=== PATIENT | female | born 1935 | race Caucasian/White ===

== ENCOUNTER 2019-05-06 07:51 | Observation (INO) ==
[2019-05-06 08:08] LABS: Basophils # 0.1 K/mm3 (0-0.2); Basophils % 0.8 % (0.1-2.0); Eosinophils # 0.3 K/mm3 (0.0-0.4); Hematocrit 43.7 % (37.0-47.0); Hemoglobin 13.8 g/dL (12.2-16.2); Lymphocytes # 1.5 K/mm3 (0.7-4.5); Lymphocytes % 17.3 % (10-50); Mean Corpuscular HGB Conc 31.7 g/dL (31.8-35.4); Mean Platelet Volume 8.1 fl (7.4-10.4); Monocytes # 0.7 K/mm3 (0.1-1.0); Monocytes % 7.8 % (1.7-9.3); Neutrophils # 6.3 K/mm3 (1.8-7.8); Neutrophils % 71.2 % (37.0-80.0); Platelet Count 239 K/mm3 (142-424); White Blood Count 8.8 K/mm3 (4.8-10.8)
--- NOTE | 2019-05-06 08:14 | Emergency Department Note ---
ED Disposition Clinical Impression: Chest pain, Hyponatremia, Hyperlipidemia, Hypothyroidism, Osteoarthritis, Raynauds syndrome Disposition: Admitted as Observation Condition on Discharge: Serious - Critical Care Critical Care Time: No Attestation: On 05/06/19, the high probability of a clinically significant, sudden or life th reatening deterioration of the following system(s) required my full and direct attention, intervention and personal management. The time I documented below is in addition to time spent performing reported procedures but includes the following listed in this critical care notation. Medical Decision Making - Medical Records Medical records reviewed: Yes: I reviewed the patient's medical records. - Jose M Inquiry Pt receiving controlled substance: No Vital Signs: 05/06/19 07:51 05/06/19 08:26 05/06/19 08:57 Temperature Source Oral Pulse Rate [Right] 71 73 70 Respiratory Rate 18 Blood Pressure [Right Arm] 132/73 142/72 H 128/67 Blood Pressure Mean [Right Arm] 92 95 87 Blood Pressure Source [Right Arm] Automatic Cuff Automatic Cuff Automatic Cuff Blood Pressure Position [Right Arm] Sitting Sitting Sitting 02 Sat by Pulse Oximetry 97 97 100 Oxygen Delivery Method Room Air Room Air - Lab Data Lab results reviewed: Yes: I reviewed the patient's lab results. Lab Results 05/06/19 07:50: WBC 8.8, RBC 4.20, Hgb 13.8, Hct 43.7, MCV 104.0 H, MCH 32.9 H, MCHC 31.7 L, RDW 13.0, Plt Count 239, MPV 8.1, Neut % (Auto) 71.2, Lymph % (Auto) 17.3, [place] % (Auto) 7.8, Eos % (Auto) 3.0, Baso % (Auto) 0.8, Neut # (Auto) 6.3, Lymph # (Auto) 1.5, [place] # (Auto) 0.7, Eos # (Auto) 0.3, Baso # (Auto) 0.1 05/06/19 07:50: Sodium 132 L, Potassium 4.0, Chloride 99, Carbon Dioxide 29, Anion Gap 8.0, BUN 11, Creatinine 0.62, Estimated Creat Clear 38, Estimated GFR 91, Est GFR ( Amer) 110, Glucose 90, Calcium 8.6, Total Bilirubin 0.8, Direct Bilirubin 0.2, Indirect Bilirubin 0.6, AST 17, ALT 14, Alkaline Phosphatase 97, Troponin I < 0.02, Total Protein 7.3, Albumin 3.4 Result diagrams: 05/06/19 07:50 05/06/19 07:50 - ECG Data Tracing #1 I reviewed this ECG and interpreted as documented below: Electronically paced rhythm at rate of 71. ECG initial impression date: 05/06/19 ECG initial impression time: 07:50 Normal Sinus Rhythm: No (Electronic pacemaker) Chest Pain HPI - General Chief Complaint: Chest Pain Stated Complaint: chest pain Time Seen by Provider: 05/06/19 07:55 Mode of Arrival: EMS Source of Information: Patient Limitations: No Limitations Description of Symptoms (Recalled from ER Triage Doc. by RN): EMS reports patient complains of pain acorss her chest and between her shoulder baldes. Patient took 3 of Nitro, first one was taken at 0630 when the pain started. EMS reports pain had subsided when they arrived on seen. EMS gave her 3 of 24 aspirin in route. - History of Present Illness MD complaint: chest pain indicative of cardiac Duration: now resolved (Resolved after 3 nitros) Activity at onset: during rest Pain location: substernal Severity: severe Quality: aching Pain radiation: none Relieving factors: nothing Exacerbating factors: nothing Associated symptoms: other (Lightheadedness and weakness) Treatments prior to or on arrival for Cardiac Chest Pain: aspirin, nitroglycerin - Related Data Home Medications Medication Instructions Recorded Confirmed Levothyroxine Sodium 200 mcg PO DAILY 07/25/17 05/06/19 [Levothyroxine 200mcg (0.2mg) Tab] Rosuvastatin Calcium 5 mg PO DAILY 11/19/17 05/06/19 apixaban 5 mg tablet 5 mg PO BID 05/14/18 05/06/19 cyanocobalamin (vitamin B-12) 1,000 mcg PO DAILY 06/24/18 05/06/19 1,000 mcg capsule calcium carbonate 300 mg (750 mg) 300 mg PO DAILY tab 08/05/18 05/06/19 chewable tablet Spironolactone [Spironolactone 1 mg PO BID 05/06/19 05/06/19 25mg Tablet] Allergies Allergy/AdvReac Type Severity Reaction Status Date / Time sulfamethoxazole Allergy Severe S-SWELLS-OR Verified 05/06/19 08:01 [From BACTRIM] AL/THROAT trimethoprim [From BACTRIM] Allergy Severe S-SWELLS-OR Verified 05/06/19 08:01 AL/THROAT nitrofurantoin Allergy Unknown Verified 05/06/19 08:01 [NITROFURANTOIN] [facility] History - Hepatitis A Screen Drug use history?: No High risk sexual behaviors?: No History of sexually transmitted infection?: No Currently employed?: No Childcare worker?: No Do you have indoor plumbing?: Yes Do you have electricity?: Yes Attestation statement:: This patient has been screened for Hepatitis A risk factors. I have reviewed the patient's past medical history: Yes Medical History: Reports:: Atrial Fibrillation, Hyperlipidemia, Internal Pacemaker Denies:: Diabetes Mellitus Type 1, Diabetes Mellitus Type 2, Lung Disease, S eizures Other Medical History: Reports: Arthritis, Hypothyroidism Other Surgeries: Yes: Cholecystectomy, Colonoscopy, EGD, Pacemaker, Thyroidectomy, Tubal Ligation Amputation: No Fractures: Yes (Left Wrist 20 years ) - Social History Smoking Status: Never smoker Alcohol Intake: never Alcohol Intake Frequency:: other Substance Use Type: denies use Occupational Status: retired Housing: house Family Hx:: Heart Attack ROS Obtained: Yes All systems reviewed & no additional complaints - Constitutional Constitutional: Reports malaise, Reports weakness, Reports other (Lightheadedness) - Eyes Eyes: Reports system reviewed and no additional complaints, except as docu - ENT Ears, Nose, Mouth, and Throat: Reports system reviewed and no additional complaints, except as docu - Cardiovascular Cardiovascular: Reports chest pain, Reports chest pain at rest, Reports lightheadedness - Respiratory Respiratory: Yes system reviewed and no additional complaints, except as docu - Gastrointestinal Gastrointestingal: Reports: system reviewed and no additional complaints, except as docu - Genitourinary Female Genitourinary: Reports system reviewed and no additional complaints, except as docu - Musculoskeletal Musculoskeletal: Reports system reviewed and no additional complaints, except as docu - Integumentary/Breasts Skin/Breast: Reports system reviewed and no additional complaints, except as docu - Neurologic Neurologic: Reports system reviewed and no additional complaints, except as docu - Endocrine Endocrine: Reports system reviewed and no additional complaints, except as docu - Hematologic/Lymphatic Henatologic/Lymphatic: Reports system reviewed and no additional complaints, except as docu - Allergic/Immunologic Allergic/Immunologic: Reports system reviewed and no additional complaints, except as docu Physical Exam - General General appearance: alert, in no apparent distress - Head Head exam: atraumatic, normocephalic, normal inspection - Eye Eye exam: Present: normal appearance, PERRL, EOMI - ENT ENT exam: Present: normal exam - Neck Neck exam: Present: normal inspection, full ROM, trachea midline. Absent: meningismus, lymphadenopathy - Chest Chest inspection: Present: normal inspection, symmetric chest wall rise. Absent: tenderness - Respiratory Respiratory exam: Present: normal lung sounds bilaterally. Absent: respiratory distress - Cardiovascular Cardiovascular exam: Present: regular rate, normal rhythm, Pacemaker w/paced rhythm. Absent: JVD - Abdominal Exam Abdominal exam: Present: soft, normal bowel sounds. Absent: distention, tenderness, guarding - Extremities Exam Extremities exam: Present: normal inspection, full ROM, normal capillary refill. Absent: calf tenderness - Back Exam Back exam: Present: normal inspection. Absent: tenderness - Neurological Exam Neurological exam: Present: alert, oriented X3, CN II-XII intact, normal gait. Absent: motor sensory deficit - Psychiatric Psychiatric exam: Present: normal affect, normal mood - Skin Skin exam: Present: warm, dry, intact, normal color - Lymphatic Lymphatic Findings: no adenopathy
[2019-05-06 08:20] LABS: Alanine Aminotransferase 14 U/L (12-78); Albumin Level 3.4 gm/dL (3.4-5.0); Alkaline Phosphatase 97 U/L (46-116); Aspartate Amino Transferase 17 U/L (15-37); Bilirubin,Direct 0.2 mg/dL (0.0-0.2); Bilirubin,Indirect 0.6 mg/dL (0.0-0.9); Bilirubin,Total 0.8 mg/dL (0.2-1.0); Blood Urea Nitrogen 11 mg/dL (7-18); Calcium 8.6 mg/dL (8.5-10.1); Carbon Dioxide 29 mmol/L (21.0-32.0); Chloride 99 mmol/L (98-107); Glucose 90 mg/dL (74-106); Sodium 132 mmol/L (136-145); Total Protein,Serum 7.3 gm/dL (6.4-8.2)
--- NOTE | 2019-05-06 09:36 | History & Physical Report ---
*Admission Date: 05/06/19 *Chief complaint: chest pain *History of present illness: Ms Cohen is an 84-year-old female with a history of atrial fibrillation, hyperlipidemia, hypothyroidism, and previous abnormal stress test who presented to [facility] emergency room after experiencing midsternal chest discomfort after arising this morning. She states the pain did not go away and eventually she felt through to her back. She did take 2 nitros after which she felt the pain eventually subsided. She denies associated shortness of breath, nausea, vomiting, and palpitations. She states she has had this chest pain in this past but not this severe. What really frightened her was the dizziness that she experienced after taking the nitroglycerin. In route to the emergency room via ambulance she was given aspirin. At the time of this exam she was pain-free and denies shortness of breath. Initial troponin was normal. She has been seen by cardiology, and will be admitted, started on a beta-padmini, and observed with monitoring of blood pressure and heart rate. Patient was also seen by Dr. Fan in the emergency room. [facility] History Medical History: Reports:: Atrial Fibrillation, Gastroesophageal Reflux Disease(GERD), Hyperlipidemia, Internal Pacemaker Denies:: Diabetes Mellitus Type 1, Diabetes Mellitus Type 2, Lung Disease, Seizures *Have you ever received a pneumonia vaccine?: No *Have you received a flu vaccine this season?: Yes Other Medical History: Reports: Arthritis, Hypothyroidism Comment:: Parkinson's disease Laterality Cases: Right: Breast Biopsy, Partial Knee Replacement, Bilateral: Carpal Tunnel Release, Cataract, Tonsillectomy Other Surgeries: Yes: Cholecystectomy, Colonoscopy, EGD, Pacemaker, Thyroidectomy, Tubal Ligation Amputation: No Fractures: Yes (Left Wrist 20 years ) - *Social History Smoking Status: Never smoker Alcohol Intake: never Alcohol Intake Frequency:: other Substance Use Type: denies use *Occupational Status:: retired Housing: house Household Members: none *Travel in the last 8 weeks: None Family Hx:: Cancer, Heart Attack Review of Systems - Constitutional Denies headache(s) - Eyes Denies change in vision - ENT Reports dry mouth, Reports nasal discharge, Denies ear pain, Denies sore throat Comments: Think she probably has allergies - *Cardiovascular Reports chest pain, Reports irregular heart rhythm, Reports lightheadedness, Denies shortness of breath, Denies leg swelling (Drugs) - *Respiratory Denies chest congestion, Denies cough, Denies shortness of breath - *Gastrointestinal Reports heartburn, Denies abdominal pain, Denies change in bowel habits, Denies vomiting blood, Denies bright, red blood in stools, Denies loose stools, Denies black, tarry stools, Denies nausea, Denies vomiting - *Genitourinary Reports genital itching, Denies difficulty urinating, Denies painful urination - *Musculoskeletal Denies joint pain - *Neurologic Reports dizziness, Reports weakness, Denies abnormal walking, Denies abnormal speech, Denies seizure-like activity Meds Home Medications Medication Instructions Recorded Confirmed Type Levothyroxine Sodium 200 mcg PO DAILY 07/25/17 05/06/19 History [Levothyroxine 200mcg (0.2mg) Tab] Rosuvastatin Calcium 5 mg PO DAILY 11/19/17 05/06/19 History apixaban 5 mg tablet 5 mg PO BID 05/14/18 05/06/19 History cyanocobalamin (vitamin B-12) 1,000 mcg PO DAILY 06/24/18 05/06/19 History 1,000 mcg capsule calcium carbonate 300 mg (750 mg) 300 mg PO DAILY tab 08/05/18 05/06/19 History chewable tablet Spironolactone [Spironolactone 1 mg PO BID 05/06/19 05/06/19 History 25mg Tablet] Allergies Allergy/AdvReac Type Severity Reaction Status Date / Time sulfamethoxazole Allergy Severe S-SWELLS-OR Verified 05/06/19 08:01 [From BACTRIM] AL/THROAT trimethoprim [From BACTRIM] Allergy Severe S-SWELLS-OR Verified 05/06/19 08:01 AL/THROAT nitrofurantoin Allergy Unknown Verified 05/06/19 08:01 [NITROFURANTOIN] Exam Vital signs and Labs for Last 24 Hours: Pulse Resp BP Pulse Ox 72 18 133/69 100 05/06/19 09:21 05/06/19 07:51 05/06/19 09:21 05/06/19 09:21 Laboratory Results - last 24 hr 05/06/19 07:50: WBC 8.8, RBC 4.20, Hgb 13.8, Hct 43.7, MCV 104.0 H, MCH 32.9 H, MCHC 31.7 L, RDW 13.0, Plt Count 239, MPV 8.1, Neut % (Auto) 71.2, Lymph % (Auto) 17.3, [place] % (Auto) 7.8, Eos % (Auto) 3.0, Baso % (Auto) 0.8, Neut # (Auto) 6.3, Lymph # (Auto) 1.5, [place] # (Auto) 0.7, Eos # (Auto) 0.3, Baso # (Auto) 0.1 05/06/19 07:50: Sodium 132 L, Potassium 4.0, Chloride 99, Carbon Dioxide 29, Anion Gap 8.0, BUN 11, Creatinine 0.62, Estimated Creat Clear 38, Estimated GFR 91, Est GFR ( Amer) 110, Glucose 90, Calcium 8.6, Total Bilirubin 0.8, Direct Bilirubin 0.2, Indirect Bilirubin 0.6, AST 17, ALT 14, Alkaline Phosphatase 97, Troponin I < 0.02, Total Protein 7.3, Albumin 3.4 I & O for Last 24 hours: Intake & Output 05/03/19 05/04/19 05/05/19 05/06/19 11:59 11:59 11:59 11:59 Weight 132 lb Radiology Reports for the Last 24 Hours: 05/06/2019 chest x-ray IMPRESSION: Pacemaker present with borderline cardiomegaly. No change no acute - Constitutional no acute distress Comments: Appears comfortable - *Routine HEENT Exam Head: Present: normocephalic, atraumatic Eye: Present: PERRL. Absent: scleral injection, conjunctivae pink ENT: Present: mucous membranes moist, oropharynx clear, nares patent - *Routine Neck Exam Present: supple, full ROM. Absent: carotid bruit, lymphadenopathy, thyromegaly - *Routine Respiratory Exam Present: CTA bilaterally (Anteriorly and posteriorly ) - *Routine Cardiovascular Exam Present: RRR - *Routine Abdominal Exam Present: soft, normoactive bowel sounds. Absent: tenderness, distended - *Routine Extremities Exam Present: full ROM. Absent: edema, calf tenderness - *Routine Neurological Exam Present: alert, oriented X3 Assessment and Plan (1) Atrial fibrillation Current visit: Yes Status: Acute Category: Medical Code(s): I48.91 - Unspecified atrial fibrillation (2) Chest pain Current visit: Yes Status: Acute Qualifiers: Category: Medical Code(s): R07.9 - Chest pain, unspecified (3) Hyperlipidemia Current visit: Yes Status: Acute Category: Medical Code(s): E78.5 - Hyperlipidemia, unspecified (4) Hypothyroidism Current visit: Yes Status: Acute Category: Medical Code(s): E03.9 - Hypothyroidism, unspecified (5) Osteoarthritis Current visit: Yes Status: Acute Category: Medical Code(s): M19.90 - Unspecified osteoarthritis, unspecified site (6) Cardiac pacemaker in situ Current visit: No Status: Chronic Category: Medical Code(s): Z95.0 - Presence of cardiac pacemaker - Assessment and plan all Dx Assessment and Plan for all problems:: Will follow cardiology recommendations with beta-padmini and observation.
--- NOTE | 2019-05-06 09:39 | Consult Report ---
History of Present Illness Consult date: 05/06/19 Requesting physician: Jeana Fan Consult reason: chest pain Chief complaint: chest pain Additional Medical History:: 1. Abnormal lexiscan myoview, 07/2017, with EF 73% and small area of inferior ischemia noted. Similar to 2016 study. 2. Hypothyroidism, on replacement therapy A. History of ablation with iodine therapy 3. Hyperlipidemia, on statin therapy 4. Chronic atrial fibrillation, on Eliquis therapy 5. History of single lead [employer] permanent pacemaker placed in 2013, Dr. Umanzor 6. Gastroesophageal reflux disease 7. Moderate aortic and mitral regurgitation, echocardiogram, 07/2018 8. Orthostatic dizziness A. Carotid u/s, 08/2018, less than 20% ICA stenosis bilaterally. Unchanged from 2018. History of present illness: 84-year-old white female was seen in the ER for chest pain this morning. She describes it as starting at rest on the left side of her chest and radiating across the chest with such intensity that she took nitroglycerin sublingual tablets x3 over the course of 15 minutes with subsequent resolution of the symptoms. She denies any shortness of breath, nausea or diaphoresis. Afterwards, she did note some back discomfort which has resolved since coming to the ER. She was given aspirin in route by EMS. Her EKG is paced with LBBB. Initial troponin is normal. Patient has a history of an abnormal stress test last year but due to lack of symptoms has been managed conservatively. Patient was seen in Dr. Fan's office yesterday for routine visit. She does relate intermittent dizziness at times with positional change. [facility] History Medical History: Reports:: Atrial Fibrillation, Gastroesophageal Reflux Disease(GERD), Hyperlipidemia, Internal Pacemaker Denies:: Diabetes Mellitus Type 1, Diabetes Mellitus Type 2, Lung Disease, Seizures *Have you ever received a pneumonia vaccine?: No *Have you received a flu vaccine this season?: Yes Other Medical History: Reports: Arthritis, Hypothyroidism Laterality Cases: Right: Breast Biopsy Other Surgeries: Yes: Cholecystectomy, Colonoscopy, EGD, Pacemaker, Thyroidectomy, Tubal Ligation Amputation: No Fractures: Yes (Left Wrist 20 years ) - *Social History Smoking Status: Never smoker Alcohol Intake: never Alcohol Intake Frequency:: other Substance Use Type: denies use *Occupational Status:: retired Housing: house *Travel in the last 8 weeks: None Family Hx:: Heart Attack Meds Home Medications Medication Instructions Recorded Confirmed Type Levothyroxine Sodium 200 mcg PO DAILY 07/25/17 05/06/19 History [Levothyroxine 200mcg (0.2mg) Tab] Rosuvastatin Calcium 5 mg PO DAILY 11/19/17 05/06/19 History apixaban 5 mg tablet 5 mg PO BID 05/14/18 05/06/19 History cyanocobalamin (vitamin B-12) 1,000 mcg PO DAILY 06/24/18 05/06/19 History 1,000 mcg capsule calcium carbonate 300 mg (750 mg) 300 mg PO DAILY tab 08/05/18 05/06/19 History chewable tablet Spironolactone [Spironolactone 1 mg PO BID 05/06/19 05/06/19 History 25mg Tablet] Allergies Allergy/AdvReac Type Severity Reaction Status Date / Time sulfamethoxazole Allergy Severe S-SWELLS-OR Verified 05/06/19 08:01 [From BACTRIM] AL/THROAT trimethoprim [From BACTRIM] Allergy Severe S-SWELLS-OR Verified 05/06/19 08:01 AL/THROAT nitrofurantoin Allergy Unknown Verified 05/06/19 08:01 [NITROFURANTOIN] Review of Systems - Review of Systems Review of systems:: pertinent systems reviewed and negative unless documented below - Constitutional Denies weight gain, Denies weight loss - *Cardiovascular Reports chest pain, Denies shortness of breath with activity - *Respiratory Denies chest congestion, Denies cough, Denies shortness of breath with activity - *Gastrointestinal Denies loose stools, Denies vomiting - *Genitourinary Denies blood in urine - *Musculoskeletal Denies joint pain, Denies back pain - *Neurologic Reports dizziness, Reports weakness, Denies fainting Exam Vital signs and Labs for Last 24 Hours: Pulse Resp BP Pulse Ox 72 18 133/69 100 05/06/19 09:21 05/06/19 07:51 05/06/19 09:21 05/06/19 09:21 Laboratory Results - last 24 hr 05/06/19 07:50: WBC 8.8, RBC 4.20, Hgb 13.8, Hct 43.7, MCV 104.0 H, MCH 32.9 H, MCHC 31.7 L, RDW 13.0, Plt Count 239, MPV 8.1, Neut % (Auto) 71.2, Lymph % (Auto) 17.3, [place] % (Auto) 7.8, Eos % (Auto) 3.0, Baso % (Auto) 0.8, Neut # (Auto) 6.3, Lymph # (Auto) 1.5, [place] # (Auto) 0.7, Eos # (Auto) 0.3, Baso # (Auto) 0.1 05/06/19 07:50: Sodium 132 L, Potassium 4.0, Chloride 99, Carbon Dioxide 29, Anion Gap 8.0, BUN 11, Creatinine 0.62, Estimated Creat Clear 38, Estimated GFR 91, Est GFR ( Amer) 110, Glucose 90, Calcium 8.6, Total Bilirubin 0.8, Direct Bilirubin 0.2, Indirect Bilirubin 0.6, AST 17, ALT 14, Alkaline Phosphatase 97, Troponin I < 0.02, Total Protein 7.3, Albumin 3.4 I & O for Last 24 hours: Intake & Output 05/03/19 05/04/19 05/05/19 05/06/19 11:59 11:59 11:59 11:59 Weight 132 lb - *Routine HEENT Exam Head: Present: normocephalic Eye: Present: EOMI, PERRL ENT: Present: mucous membranes moist - *Routine Neck Exam Present: supple. Absent: JVD, carotid bruit - *Routine Respiratory Exam Present: CTA bilaterally. Absent: accessory muscle use, rales, rhonchi, wheezes - *Routine Cardiovascular Exam Present: RRR, murmur. Absent: gallop, rubs - *Routine Abdominal Exam Present: soft. Absent: tenderness, distended, guarding - *Routine Extremities Exam Absent: edema, calf tenderness - *Routine Neurological Exam Present: alert, oriented X3, moving all extremities Assessment and Plan (1) Chest pain Current visit: Yes Status: Acute Qualifiers: Category: Medical Code(s): R07.9 - Chest pain, unspecified (2) Atrial fibrillation Current visit: Yes Status: Acute Category: Medical Code(s): I48.91 - Unspecified atrial fibrillation (3) Cardiac pacemaker in situ Current visit: No Status: Chronic Category: Medical Code(s): Z95.0 - Presence of cardiac pacemaker (4) Abnormal stress test Current visit: Yes Status: Acute Category: Medical Code(s): R94.39 - Abnormal result of other cardiovascular function study (5) Dizziness Current visit: No Status: Acute Category: Medical Code(s): R42 - Dizziness and giddiness - Assessment and plan all Dx Assessment and Plan for all problems:: 1. Chest pain that resolved after 3 sublingual nitroglycerin over the course of 15 minutes. Consistent with unstable angina. Patient is not on any antianginal medication at this time. She does have a history of abnormal stress test with small area of inferior ischemia in 2018. Discussion regarding treatment approaches made with the patient including medication and/or left heart catheterization for further evaluation. Patient would prefer to try medical therapy first. Due to her history of dizziness will start with low-dose beta-padmini therapy in the form of metoprolol 12.5 mg twice daily. We will monitor her heart rate and blood pressure overnight. Obtain serial cardiac enzymes x3. 2. History of moderate aortic and mitral regurgitation on echocardiogram earlier this year. Will obtain a repeat echocardiogram to assess if this has progressed. 3. Chronic A. fib with CVR, on anticoagulation.
--- NOTE | 2019-05-06 10:35 | Pharmacy Consult Notes ---
[facility] Pharmacy VTE Monitoring - Patient Demographics Admission date: 05/06/19 Report Date: 05/06/19 Time: 10:34 Allergies/Adverse Reactions: Patient Allergies sulfamethoxazole [From BACTRIM] Allergy (Severe, Verified 05/06/19 08:01) [id number]/THROAT trimethoprim [From BACTRIM] Allergy (Severe, Verified 05/06/19 08:01) [id number]/THROAT nitrofurantoin [NITROFURANTOIN] Allergy (Unknown, Verified 05/06/19 08:01) Height: 1.65 m Weight: 59.874 kg Patient Problems: Current Active Problems Chest pain (Acute) Hyponatremia (Acute) Hyperlipidemia (Acute) Hypothyroidism (Acute) Osteoarthritis (Acute) Raynauds syndrome (Acute) Atrial fibrillation (Acute) Abnormal stress test (Acute) - VTE Risk Labs: VTE Related Lab Results Hgb 13.8 g/dL (12.2-16.2) 05/06/19 07:50 Hct 43.7 % (37.0-47.0) 05/06/19 07:50 Plt Count 239 K/mm3 (142-424) 05/06/19 07:50 BUN 11 mg/dL (7-18) 05/06/19 07:50 Creatinine 0.62 mg/dL (0.55-1.02) 05/06/19 07:50 Estimated Creat Clear 38 mL/min (50-200) 05/06/19 07:50 Was VTE Risk Assessment Performed: No VTE Score: 1 VTE Risk Level: Very Low Risk - Prophylaxis VTE Prophylaxis Ordered?: Yes Types of VTE Prophylaxis: Pharmacological Pharmacologic Type: Other (ELIQUIS) - VTE Diagnosis Confirmed Treatment or plan recommended: Continue Current Treatment
--- NOTE | 2019-05-06 21:37 | Cardiology Report ---
APPROVED REPORT EXAM: Comprehensive 2D, Doppler, and color-flow Echocardiogram Sap Abap Programmer: Ara Son RVT Ht: 5 ft 5 in Wt: 132lbs BSA: 1.66 BP: 133/69 mmHg Indications: Chest Pain, Atrial Fibrillation, Hyperlipidemia, Abn stress test, Pacer, GERD, Mod MR, Mod AR 2D Dimensions LVOT 1.25 cm (M/F) 1.5-2.5 M-Mode Dimensions RVDd 2.03 cm (0.9-2.6)LA Diam 4.00 cm (1.9-4.0) RA Diam 4.80 cmLVDd 4.20 cm (3.5-5.7) Ao Diam 1.60 cm (2.0-3.7)LVDs 2.10 cm (3.5-5.7) AV Cusp 1.40 cm (1.5-2.6)IVSd 0.80 cm (0.6-1.1) PWd 0.83 cm (0.6-1.1)EF (Teich) 81.70% FS 50.00% EDV (Teich) 78.60 mL ESV (Teich) 14.40 mL LV Diastology E/A Ratio 3.91 Mitral Valve MV A Velocity 18.00 (40-130 cm/s) Left Ventricle Left atrium is moderately enlarged, left ventricle is normal size, mild concentric left ventricular hypertrophy, visually estimated ejection fraction 50%, there is abnormal septal motion, diastolic parameters are inconclusive. Right Ventricle Right atrium is moderately enlarged, right ventricle is moderately dilated with normal contractility, there is a pacemaker seen in the right atrium and right ventricle. Aortic Valve Aortic valve is minimally thickened and calcified leaflet continue to display good mobility, there is no aortic stenosis, there is mild aortic insufficiency. Mitral Valve Mitral valve leaflets are minimally thickened, there is no mitral stenosis, there is mild mitral regurgitation. Tricuspid Valve Tricuspid valve is minimally thickened, there is mild tricuspid regurgitation, calculated right ventricular systolic pressure 38 mmHg, inferior vena cava is dilated without significant inspiratory collapse. Conclusion 1. Biatrial enlargement, normal left ventricular size, visually estimated ejection fraction 50% with abnormal septal motion, diastolic parameters are inconclusive. 2. Moderately enlarged right ventricle with normal contractility. His pacemaker leads in right ventricle. 3. Mild aortic, mild mitral and tricuspid regurgitation, calculated right ventricular systolic pressure is 38 mmHg. 4. Inferior vena cava is dilated without significant inspiratory collapse. Electronically signed by : Lyle Daniel, 05/06/2019 21:37:01
[2019-05-07 06:24] LABS: Basophils # 0.1 K/mm3 (0-0.2); Basophils % 0.7 % (0.1-2.0); Eosinophils # 0.3 K/mm3 (0.0-0.4); Eosinophils % 3.9 % (0.1-12.0); Hematocrit 40.8 % (37.0-47.0); Hemoglobin 12.9 g/dL (12.2-16.2); Lymphocytes % 13.3 % (10-50); Mean Corpuscular HGB Conc 31.6 g/dL (31.8-35.4); Mean Corpuscular Volume 102.6 fl (81-99); Mean Platelet Volume 8.4 fl (7.4-10.4); Monocytes # 0.7 K/mm3 (0.1-1.0); Monocytes % 9.2 % (1.7-9.3); Neutrophils # 5.6 K/mm3 (1.8-7.8); Neutrophils % 72.8 % (37.0-80.0); Platelet Count 220 K/mm3 (142-424); Red Blood Count 3.98 M/mm3 (4.20-5.40); Red Cell Distribution Width 12.8 % (11.5-17.5); White Blood Count 7.7 K/mm3 (4.8-10.8)
[2019-05-07 07:01] LABS: INR 1.09 (0.9-1.1); Prothrombin Time 11.3 seconds (9.4-11.8)
[2019-05-07 07:03] LABS: Albumin/Globulin Ratio 0.9 (1.1-1.8); Anion Gap 11.8 mEq/L (5-15); Bilirubin,Total 0.7 mg/dL (0.2-1.0); Calcium 8.5 mg/dL (8.5-10.1); Chol/HDL Ratio 2.1 (1-3.5); Globulin 3.5 gm/dl (1.3-3.2); Phosphorous 3.2 mg/dL (2.4-4.9); Total Protein,Serum 6.5 gm/dL (6.4-8.2)
--- NOTE | 2019-05-07 07:19 | Electrocardiograph Report ---
APPROVED REPORT Exam: Resting ECG HR:71 bpm ECG Measurements Heart Rate 71 AXES QRSd 160 QRS -77 QT 444 T90 QTc 482 <Conclusion> Electronic ventricular pacemaker Electronically signed by : Amador An, 05/07/2019 07:18:24
--- NOTE | 2019-05-07 08:04 | Progress Note ---
Internal Medicine - PN: Subj *Date: 05/07/19 *Time: 08:01 Interval history: Patient states she is still feeling about the same today. She has had no further chest pain. She denies any shortness of breath. She states she slept well last night and try to eat some breakfast this morning. Exam Vital signs and Labs for Last 24 Hours: Temp Pulse Resp BP Pulse Ox 97.7 F 68 16 145/65 H 97 05/07/19 04:00 05/07/19 04:00 05/07/19 04:00 05/07/19 04:00 05/07/19 04:00 Laboratory Results - last 24 hr 05/06/19 07:50: WBC 8.8, RBC 4.20, Hgb 13.8, Hct 43.7, MCV 104.0 H, MCH 32.9 H, MCHC 31.7 L, RDW 13.0, Plt Count 239, MPV 8.1, Neut % (Auto) 71.2, Lymph % (Auto) 17.3, [place] % (Auto) 7.8, Eos % (Auto) 3.0, Baso % (Auto) 0.8, Neut # ( Auto) 6.3, Lymph # (Auto) 1.5, [place] # (Auto) 0.7, Eos # (Auto) 0.3, Baso # (Auto) 0.1 05/06/19 07:50: Sodium 132 L, Potassium 4.0, Chloride 99, Carbon Dioxide 29, Anion Gap 8.0, BUN 11, Creatinine 0.62, Estimated Creat Clear 38, Estimated GFR 91, Est GFR ( Amer) 110, Glucose 90, Calcium 8.6, Total Bilirubin 0.8, Direct Bilirubin 0.2, Indirect Bilirubin 0.6, AST 17, ALT 14, Alkaline Phosphatase 97, Troponin I < 0.02, Total Protein 7.3, Albumin 3.4 05/06/19 12:32: Troponin I < 0.02 05/06/19 12:34: TSH 0.84 05/06/19 18:35: Troponin I < 0.02 05/07/19 05:50: WBC 7.7, RBC 3.98 L, Hgb 12.9, Hct 40.8, MCV 102.6 H, MCH 32.4 H , MCHC 31.6 L, RDW 12.8, Plt Count 220, MPV 8.4, Neut % (Auto) 72.8, Lymph % (Auto) 13.3, [place] % (Auto) 9.2, Eos % (Auto) 3.9, Baso % (Auto) 0.7, Neut # (Auto) 5.6, Lymph # (Auto) 1.0, [place] # (Auto) 0.7, Eos # (Auto) 0.3, Baso # (Auto) 0.1 05/07/19 05:50: PT 11.3, INR 1.09 05/07/19 05:50: Sodium 135 L, Potassium 3.8, Chloride 100, Carbon Dioxide 27, Anion Gap 11.8, BUN 11, Creatinine 0.57, Estimated Creat Clear 37, Estimated GFR 101, Est GFR ( Amer) 122, Glucose 89, Calcium 8.5, Phosphorus 3.2, Magnesium 1.7, Total Bilirubin 0.7, AST 16, ALT 16, Alkaline Phosphatase 84, Total Protein 6.5, Albumin 3.0 L D, Globulin 3.5 H, Albumin/Globulin Ratio 0.9 L , Triglycerides 42, Cholesterol 104 L, LDL Cholesterol 46, VLDL Cholesterol 8, HDL Cholesterol 50, Cholesterol/HDL Ratio 2.1 I & O for Last 24 hours: Intake & Output 05/04/19 05/05/19 05/06/19 05/07/19 11:59 11:59 11:59 11:59 Intake Total 828 / 828 Output Total 750 / 750 Balance 78 / 78 Weight 125 lb 9 oz 126 lb 7 oz - *Routine HEENT Exam Head: Present: normocephalic Eye: Present: EOMI, PERRL ENT: Present: mucous membranes moist - *Routine Neck Exam Present: supple. Absent: lymphadenopathy - *Routine Respiratory Exam Present: CTA bilaterally - *Routine Cardiovascular Exam Present: RRR - *Routine Abdominal Exam Present: soft, normoactive bowel sounds. Absent: tenderness - *Routine Extremities Exam Absent: cyanosis, clubbing, edema - *Routine Skin Exam Present: warm. Absent: rash - *Routine Neurological Exam Present: alert, oriented X3 - Detailed Eye Exam Eyelids: Left normal inspection Assessment and Plan (1) Chest pain Current visit: Yes Status: Acute Qualifiers: Category: Medical Code(s): R07.9 - Chest pain, unspecified (2) Atrial fibrillation Current visit: Yes Status: Acute Category: Medical Code(s): I48.91 - Unspecified atrial fibrillation (3) Cardiac pacemaker in situ Current visit: No Status: Chronic Category: Medical Code(s): Z95.0 - Presence of cardiac pacemaker (4) Abnormal stress test Current visit: Yes Status: Acute Category: Medical Code(s): R94.39 - Abnormal result of other cardiovascular function study (5) Dizziness Current visit: No Status: Acute Category: Medical Code(s): R42 - Dizziness and giddiness - Assessment and plan all Dx Assessment and Plan for all problems:: Cardiology did see the patient and discussed a left heart cath. She wanted to try medical management first. She has not had any further chest pain and her troponins have all returned normal. Will discuss further care with Dr. Fan.
--- NOTE | 2019-05-07 08:46 | Progress Note ---
Subjective Date: 05/07/19 Time: 08:43 Principal diagnosis: chest pain Interval history: This is an 84-year-old female who was admitted to the hospital with chest pain. There were discussions yesterday of proceeding with left cardiac catheterization given her symptoms. The patient reported that she had an abnormal stress test back in 2018 that was not proceeded upon due to an agreeance between her and the ordering provider. The patient declined wanting to proceed with left cardiac catheterization at this time and opted for medical management. She has been started on a beta-padmini and is tolerating this well. The patient has had no recurrence of her chest pain. Her troponins are negative. She states that she feels really well today and is wishing to go home. She denies any chest pain or pressure. She denies any shortness of breath or edema. She denies any fever, chills, nausea, vomiting, diarrhea, PND or orthopnea. Exam Vital signs and Labs for Last 24 Hours: Temp Pulse Resp BP Pulse Ox 98.5 F 73 24 111/51 L 100 05/07/19 08:00 05/07/19 08:00 05/07/19 08:00 05/07/19 08:00 05/07/19 08:00 Laboratory Results - last 24 hr 05/06/19 12:32: Troponin I < 0.02 05/06/19 12:34: TSH 0.84 05/06/19 18:35: Troponin I < 0.02 05/07/19 05:50: WBC 7.7, RBC 3.98 L, Hgb 12.9, Hct 40.8, MCV 102.6 H, MCH 32.4 H , MCHC 31.6 L, RDW 12.8, Plt Count 220, MPV 8.4, Neut % (Auto) 72.8, Lymph % (Auto) 13.3, [place] % (Auto) 9.2, Eos % (Auto) 3.9, Baso % (Auto) 0.7, Neut # (Auto) 5.6, Lymph # (Auto) 1.0, [place] # (Auto) 0.7, Eos # (Auto) 0.3, Baso # (Auto) 0.1 05/07/19 05:50: PT 11.3, INR 1.09 05/07/19 05:50: Sodium 135 L, Potassium 3.8, Chloride 100, Carbon Dioxide 27, Anion Gap 11.8, BUN 11, Creatinine 0.57, Estimated Creat Clear 37, Estimated GFR 101, Est GFR ( Amer) 122, Glucose 89, Calcium 8.5, Phosphorus 3.2, Magnesium 1.7, Total Bilirubin 0.7, AST 16, ALT 16, Alkaline Phosphatase 84, Total Protein 6.5, Albumin 3.0 L D, Globulin 3.5 H, Albumin/Globulin Ratio 0.9 L , Triglycerides 42, Cholesterol 104 L, LDL Cholesterol 46, VLDL Cholesterol 8, HDL Cholesterol 50, Cholesterol/HDL Ratio 2.1 I & O for Last 24 hours: Intake & Output 05/04/19 05/05/19 05/06/19 05/07/19 23:59 23:59 23:59 23:59 Intake Total 728 / 728 100 / 100 Output Total 200 / 200 550 / 550 Balance 528 / 528 -450 / -450 Weight 132 lb 2.815 oz 126 lb 7 oz Narrative: Telemetry strip is V pacing with a rate of 70. - *Routine HEENT Exam Head: Present: normocephalic, atraumatic Eye: Present: EOMI, PERRL ENT: Present: mucous membranes moist - *Routine Neck Exam Present: supple, full ROM, normal carotid upstroke. Absent: JVD, carotid bruit, lymphadenopathy - *Routine Respiratory Exam Present: CTA bilaterally - *Routine Cardiovascular Exam Present: Normal S1, Normal S2, irregularly irregular. Absent: murmur - *Routine Abdominal Exam Present: soft, normoactive bowel sounds. Absent: tenderness, distended - *Routine Extremities Exam Present: full ROM, pulses intact, normal capillary refill. Absent: cyanosis, clubbing, edema - *Routine Skin Exam Present: intact, warm. Absent: erythema, rash - *Routine Neurological Exam Present: alert, oriented X3 - Detailed Eye Exam Eyelids: Left normal inspection Progress Note: A&P (1) Chest pain Status: Acute Current Visit: Yes (2) Atrial fibrillation Status: Acute Current Visit: Yes (3) Cardiac pacemaker in situ Status: Chronic Current Visit: No (4) Abnormal stress test Status: Acute Current Visit: Yes (5) Dizziness Status: Acute Current Visit: No Assessment and Plan for All Diagnoses:: Plan: 1. The patient was admitted to the hospital with chest pain. She declined proceeding with left cardiac catheterization and opted for medical management. The patient is tolerating a beta-padmini well. She does have a history of having some issues with dizziness and gait instability but she has had none of the symptoms with the addition of the beta-padmini. 2. She has had no recurrence of her chest pain. She has ruled out for an MS. No plans for invasive cardiac testing at this time as the patient has opted for medical management. We can consider outpatient ischemic evaluation if she has recurrence of her symptoms on an outpatient basis. 3. Her blood pressure is acceptable at her age. 4. Her LDL goal is less than 100. Her LDL is 46. 5. The patient does have atrial fibrillation. She is rate controlled and is on long-term anticoagulation with Eliquis. 6. No further recommendations at this time from a cardiovascular standpoint. The patient is stable for discharge home today from a cardiac standpoint. She is to follow-up in 1 to 2 weeks on an outpatient basis. Thank you for the opportunity to help participate in the care of this patient.
--- NOTE | 2019-05-10 21:30 | Discharge Summary ---
General - General Admission date:: 05/06/19 Discharge date: 05/07/19 HPI HPI: Ms Cohen is an 84-year-old female with a history of atrial fibrillation, hyperlipidemia, hypothyroidism, and previous abnormal stress test who presented to [facility] emergency room after experiencing midsternal chest discomfort after waking. She stated the pain did not go away and eventually she felt it through to her back. She did take 2 nitro, after which she felt the pain eventually subsided. She denied associated shortness of breath, nausea, vomiting, and palpitations. She stated she had had this chest pain in the past but not this severe. What really frightened her was the dizziness that she experienced after taking the nitroglycerin. In route to the emergency room via ambulance, she was given aspirin. At the time of H&P, she was pain-free and denied shortness of breath. Initial troponin was normal. She had been seen by cardiology, and was admitted, started on a beta-padmini, and observed with monitoring of blood pressure and heart rate. Hospital Course Hospital Course: Patient's initial chest x-ray showed nothing acute. She was admitted and started on a beta-padmini and cardiology was consulted. They discussed treatment options with the patient. She declined a heart cath and preferred to try medical therapy. Her troponins all returned normal. Cardiology did obtain an echo which showed an EF of 50% with biatrial enlargement and some abnormal septal motion. The patient's chest pain never returned and her dizziness improved with the metoprolol. She was able to ambulate and eat as well as sleep without symptoms. She was stable to be discharged home and will follow-up with cardiology and with Dr. Fan. Objective Vital signs: Temp Pulse Resp BP Pulse Ox 98.5 F 73 24 111/51 L 100 05/07/19 08:00 05/07/19 08:00 05/07/19 08:00 05/07/19 08:00 05/07/19 08:00 Narrative: - Constitutional no acute distress Comments: Appears comfortable - *Routine HEENT Exam Head: Present: normocephalic, atraumatic Eye: Present: PERRL. Absent: scleral injection, conjunctivae pink ENT: Present: mucous membranes moist, oropharynx clear, nares patent - *Routine Neck Exam Present: supple, full ROM. Absent: carotid bruit, lymphadenopathy, thyromegaly - *Routine Respiratory Exam Present: CTA bilaterally (Anteriorly and posteriorly ) - *Routine Cardiovascular Exam Present: RRR - *Routine Abdominal Exam Present: soft, normoactive bowel sounds. Absent: tenderness, distended - *Routine Extremities Exam Present: full ROM. Absent: edema, calf tenderness - *Routine Neurological Exam Present: alert, oriented X3 DS: Diagnosis - Discharge Diagnosis (1) Chest pain Status: Acute (2) Atrial fibrillation Status: Acute (3) Cardiac pacemaker in situ Status: Chronic (4) Abnormal stress test Status: Acute (5) Dizziness Status: Acute Discharge Plan - Patient Discharge Instructions ACTIVITY: Continue current activity DIET: continue same diet Patient Instructions: Getting to the Heart of a Healthful Diet: Sodium, Getting to the Heart of a Healthful Diet, Heart-Healthy Diet, DI for Chest Pain - Follow up Plan Follow up with: Jeana Fan MD [Primary Care Provider] - 05/14/19 10:00 am Disposition: Home, Self-Longterm Medications: Home Medications Medication Instructions Recorded Confirmed Type Levothyroxine Sodium 200 mcg PO DAILY 07/25/17 05/06/19 History [Levothyroxine 200mcg (0.2mg) Tab] Rosuvastatin Calcium 5 mg PO HS 11/19/17 05/06/19 History apixaban 5 mg tablet 5 mg PO BID 05/14/18 05/06/19 History cyanocobalamin (vitamin B-12) 1,000 mcg PO DAILY 06/24/18 05/06/19 History 1,000 mcg capsule calcium carbonate 300 mg (750 mg) 750 mg PO DAILY tab 08/05/18 05/06/19 History chewable tablet Carbidopa/Levodopa 1 tab PO QID 05/06/19 05/06/19 History [Carbidopa/Levodopa 25/100mg Tablet] Cholecalciferol (Vitamin D3) 400 unit PO DAILY 05/06/19 05/06/19 History [Vitamin D3] Levothyroxine Sodium 25 mcg PO DAILY 05/06/19 05/06/19 History [Levothyroxine 25mcg (0.025mg) Tab] Multivit-Min/FA/Lycopen/Lutein 1 each PO DAILY 05/06/19 05/06/19 History [Centrum Silver Tablet] Spironolactone [Spironolactone 12.5 mg PO DAILY 05/06/19 05/06/19 History 25mg Tablet] Ubidecarenone [Co Q-10] 10 mg PO DAILY 05/06/19 05/06/19 History Metoprolol Tartrate [Lopressor 12.5 mg PO BID #30 tab 05/07/19 Rx 25mg tablet] Prescriptions/Medication Reconciliation: New Metoprolol Tartrate [Lopressor 25mg tablet] 12.5 mg PO BID #30 tab Continued cyanocobalamin (vitamin B-12) 1,000 mcg capsule 1,000 mcg PO DAILY calcium carbonate 300 mg (750 mg) chewable tablet 750 mg PO DAILY tab apixaban 5 mg tablet 5 mg PO BID Levothyroxine Sodium [Levothyroxine 200mcg (0.2mg) Tab] 200 mcg PO DAILY Spironolactone [Spironolactone 25mg Tablet] 12.5 mg PO DAILY Ubidecarenone [Co Q-10] 10 mg PO DAILY Cholecalciferol (Vitamin D3) [Vitamin D3] 400 unit PO DAILY Multivit-Min/FA/Lycopen/Lutein [Centrum Silver Tablet] 1 each PO DAILY Carbidopa/Levodopa [Carbidopa/Levodopa 25/100mg Tablet] 1 tab PO QID Levothyroxine Sodium [Levothyroxine 25mcg (0.025mg) Tab] 25 mcg PO DAILY Rosuvastatin Calcium 5 mg PO HS - Problem Reconciliation Problems Reviewed?: Yes
== END 2019-05-07 11:05 | disposition home or self-care (01) ==
LOC: ER 07:51 → 2ND 07:51
PROVIDERS: ADMIT Family Medicine; ATTEND Family Medicine
CPT/HCPCS: 36415; 71020; 71046; 80048; 80053; 80061; 80076; 82607; 82746; 83735; 84100; 84443; 84484; 85025; 85610; 93005; 93306; 99284; G0378